=== PATIENT | female | born 1940 | race Caucasian/White ===

== ENCOUNTER → 2019-10-11 | Outpatient (CLI) | payer MEDICARE, BC ==
[~2019-10-11] MED LIST: REGADENOSON 0.4 MG/5 ML SYRINGE ONE
== END | disposition home or self-care (01) ==
LOC: CFH 06:57
PROVIDERS: ATTEND Internal Medicine Cardiovascular Disease
DX: I06.1 Rheumatic aortic insufficiency (principal); I06.8 Other rheumatic aortic valve diseases; I10 Essential (primary) hypertension
CPT/HCPCS: 78452; 93017; 93306; A9502; J2785